=== PATIENT | female | born 1965 | race Caucasian/White ===

== ENCOUNTER 2018-02-04 09:21 | Day surgery (SDC) | payer BC ==
[2018-02-04] MEDS ORDERED: LIDOCAINE 2% MDV (20MG/ML) 20ML VIAL IV ONE (09:22)
[2018-02-04] MEDS ORDERED: PROPOFOL 10 MG/ML VIAL IV ONE (09:22)
--- NOTE | 2018-02-05 08:00 | Operative Note ---
DATE OF SURGERY: 02/04/18 OPERATION: COLONOSCOPY with cold snare polypectomy x3. PREOPERATIVE DIAGNOSIS: Colon cancer screening. POSTOPERATIVE DIAGNOSIS: Three colon polyps, status post cold snare polypectomy removal, and fair quality colonic preparation. PROCEDURE: After informed consent was obtained from the patient, she was placed in the left lateral decubitus position in the endoscopy suite, sedated and monitored by the department of anesthesia. Digital rectal exam was unremarkable. A well-lubricated FVY341 colonoscope was inserted into the rectum and advanced to the cecum. Preparation quality was fair. The cecum demonstrated some residual particulate stool that could not be completely evacuated, as did the ascending colon and portions of the descending colon. Numerous areas were rinsed and lavaged and fluid and stool attempted to be removed but was only able to be incompletely removed. There were 3 polyps, 1 in the descending colon and 2 in the rectum which were approximately 4 mm in diameter, each removed with a cold snare. Minimal bleeding was noted at the sites. The polyps were retrieved without incident. The remainder of the descending colon, sigmoid colon, and rectum were otherwise unremarkable. J-turn views were unremarkable. The endoscope was straightened, the rectal ampulla deflated, and the endoscope was removed. RECOMMENDATIONS: The patient should resume her medications and diet. I recommend a repeat exam in 3 years based on the prep quality and the polyps. As always, thank you for allowing me to participate in the healthcare of your patients. CC: DO AUGUSTIN Portillo
== END 2018-02-04 11:24 | disposition home or self-care (01) ==
LOC: HOP 09:21
PROVIDERS: ATTEND Internal Medicine Gastroenterology
DX: Z12.11 Encounter for screening for malignant neoplasm of colon (principal); K62.1 Rectal polyp; E78.00 Pure hypercholesterolemia, unspecified; E03.9 Hypothyroidism, unspecified